=== PATIENT | female | born 1960 | race Caucasian/White ===

== ENCOUNTER 2018-11-18 18:12 | Emergency (ER) | payer OTHER ==
--- NOTE | 2018-11-18 18:22 | EDPHY ---
H & P Time Seen by Provider: 11/18/18 18:22 HPI/ROS: HPI CHIEF COMPLAINT: Right ankle swelling and pain. HISTORY OF PRESENT ILLNESS: This patient is a very pleasant 58-year-old female , she presents emergency room right lateral ankle pain and swelling. Patient states that she was going down a stair concrete stair and missed a step, rolling her right ankle inward. She now has pain and swelling to the right lateral malleolus. She denies any other injuries. Specifically denies head or neck pain, denies wrist or arm pain. Past Medical History: Thyroid disease Past Surgical History: No recent surgery Social History: Resides in [place] visiting her sister here. Family History: Noncontributory ROS REVIEW OF SYSTEMS: 10 Systems were reviewed and negative with the exception of the elements mentioned in the history of present illness. Exam Constitutional triage nursing summary reviewed, vital signs reviewed, awake/ alert. Eyes normal conjunctivae and sclera, EOMI, PERRLA. HENT normal inspection, atraumatic, moist mucus membranes, no epistaxis, neck supple/ no meningismus, no raccoon eyes. Respiratory clear to auscultation bilaterally, normal breath sounds, no respiratory distress, no wheezing. Cardiovascular rate normal, regular rhythm, no murmur, no edema, distal pulses normal. Gastrointestinal soft, non-tender, no rebound, no guarding, normal bowel sounds, no distension, no pulsatile mass. Genitourinary no CVA tenderness. Musculoskeletal right lower extremity: Neurovascular intact with good distal pulse, good cap refill, sensation intact, no signs of compartment syndrome. Swelling noted and mild tenderness over the right lateral malleolus. Closed injury. Mildly tender when I palpate over the right lateral malleolus. Otherwise good distal pulse otherwise normal sensation. no midline vertebral tenderness, full range of motion, no calf swelling, no tenderness of extremities, no meningismus, good pulses, neurovascularly intact. Skin pink, warm, & dry, no rash, skin atraumatic. Neurologic awake, alert and oriented x 3, AAOx3, moves all 4 extremities equally, motor intact, sensory intact, CN II-XII intact, normal cerebellar, normal vision, normal speech. Psychiatric normal mood/affect. Heme/Lymph/Immune no lymphadenopathy. Differential Diagnosis: Includes but is not limited to in a particular order right ankle sprain, right ankle contusion, fracture of the ankle. Medical Decision Making: Plan for this patient x-ray right ankle, ice pack, anti-inflammatory pain medicine. Re-evaluation: Right ankle x-ray reviewed by myself. No evidence of acute fracture. Soft tissue swelling over the lateral malleolus. Patient has been placed on walking boot and crutches. Anti-inflammatory pain medicine and ice. Recommend following up with orthopedic surgery. Return precautions discussed with the patient understands return emergency room if worsening pain questions or concerns. She is from [place], recommend follow up with Ortho when she returns from home. Source: Patient Constitutional: Initial Vital Signs Heart Rate 78 11/18/18 18:21 Respiratory Rate 16 11/18/18 18:21 Blood Pressure 130/70 H 11/18/18 18:21 O2 Sat (%) 97 11/18/18 18:21 Allergies/Adverse Reactions: No Known Allergies Allergy (Verified 11/18/18 18:26) Home Medications: Medication Instructions Recorded Calcitriol [Calcitriol (RX)] 0.25 mcg PO DAILY 12/20/11 Levothyroxine [Synthroid 100 mcg 100 mcg PO DAILY06 12/20/11 (RX)] Ambien 11/18/18 Departure - Departure Disposition: Home, Routine, Self-Care Clinical Impression: Ankle sprain Qualifiers: Encounter type: initial encounter Involved ligament of ankle: unspecified ligament Laterality: right Qualified Code(s): S93.401A - Sprain of unspecified ligament of right ankle, initial encounter Condition: Good Instructions: Ankle Sprain (ED) Additional Instructions: 1. Elevate your leg. Ice your ankle. 2. Anti-inflammatory pain medicine alternating Tylenol and Motrin 3. Follow up with Orthopedics Referrals: [facility] [Other] - As per Instructions Juan Carlos Rueda MD [Medical Doctor] - As per Instructions
[2018-11-18 19:59] VITALS: BP 125/65
== END 2018-11-18 19:59 | disposition home or self-care (01) ==
LOC: CED 18:12
DX: S93.401A Sprain of unspecified ligament of right ankle, initial encounter (principal); W10.8XXA Fall (on) (from) other stairs and steps, initial encounter
CPT/HCPCS: 73610-PO; 99283-ER; L4386-ER